=== PATIENT | male | born 1985 | race Caucasian/White ===

== ENCOUNTER 2021-12-22 19:40 | Emergency (ER) | payer OTHER ==
[2021-12-22] MEDS ORDERED: Boostrix 0.5 ML (Tdap) VIAL ONE (20:12)
[2021-12-22] MEDS ORDERED: Bacitracin 1 PK ONE (20:12)
[2021-12-22] MEDS ORDERED: HYDROcodone/Acetaminophen 5/325 mg Tablet ONE ×2 (20:12→23:39)
[2021-12-22] MEDS ORDERED: Naloxone HCl 0.4 mg/ml Vial ONE (21:35)
[2021-12-22] MEDS ORDERED: PROPOFOL 20 ML ONE (21:35)
== END 2021-12-22 23:30 | disposition home or self-care (01) ==
LOC: MADERS 19:40
DX: S52.572A Other intraarticular fracture of lower end of left radius, initial encounter for closed fracture (principal); S52.612A Displaced fracture of left ulna styloid process, initial encounter for closed fracture; S53.125A Posterior dislocation of left ulnohumeral joint, initial encounter; M10.9 Gout, unspecified; V89.0XXA Person injured in unspecified motor-vehicle accident, nontraffic, initial encounter; Z23 Encounter for immunization; Z79.899 Other long term (current) drug therapy
CPT/HCPCS: 24600; 25605; 90715; 99152; J2310; J2704